=== PATIENT | female | born 1990 | race Caucasian/White ===

== ENCOUNTER 2017-06-12 01:00 | Inpatient (IN) | payer BC, OTHER ==
[~2017-06-12] VITALS: Ht 160 cm; Wt 51.4 kg
[2017-06-12 01:08] VITALS: BP 129/84
[2017-06-12] MEDS ORDERED: LACTATED RINGERS 1,000 ML IV PRN (01:34)
[2017-06-12] MEDS ORDERED: MAGNESIUM SULF. PMX 20GM/500ML 500 ML IV PRN (01:34)
[2017-06-12 01:55] LABS: BASOPHILS # (AUTO) 0.02 x10^3/uL (0-0.1); BASOPHILS % (AUTO) 0 % (0-1); EOSINOPHILS # (AUTO) 0.01 x10^3/uL (0-0.4); EOSINOPHILS % (AUTO) 0 % (1-7); LYMPHOCYTES # (AUTO) 1.33 x10^3/uL (1-3.4); LYMPHOCYTES % (AUTO) 19 % (22-44); MD NO; MEAN CORPUSCULAR HGB CONC 33.5 g/dL (32.4-35.8); MEAN CORPUSCULAR VOLUME 95.5 fL (80-100); MEAN PLATELET VOLUME 10.4 fL (7.4-10.4); MONOCYTES # (AUTO) 0.11 x10^3/uL (0.2-0.8); MONOCYTES % (AUTO) 2 % (2-9); NEUTROPHILS # (AUTO) 5.72 x10^3/uL (1.8-6.8); NEUTROPHILS % (AUTO) 80 % (42-75); PLATELET COUNT 137 x10^3/uL (130-400); RED BLOOD COUNT 3.57 x10^6/uL (3.82-5.3); RED CELL DISTRIBUTION WIDTH 13.1 % (9.6-15.2)
[2017-06-12] MEDS ORDERED: BETAMETHASONE 6 MG/ML, 5ML IM SCH ×2 (02:00→22:00)
[2017-06-12] MEDS ORDERED: PLEASE ENTER ALLERGIES MC SCH (02:00)
[2017-06-12] MEDS ORDERED: CALCIUM GLUCONATE 0.46MEQ/1ML IVPush PRN (02:00)
[2017-06-12 02:05] LABS: ALANINE AMINOTRANSFERASE 12 U/L (12-78); ALBUMIN 2.3 g/dL (3.4-5.0); ANION GAP 11 mmol/L (5-15); CALCIUM 7.9 mg/dL (8.5-10.1); CHLORIDE 108 mmol/L (98-107); CREATININE 0.46 mg/dL (0.55-1.02)
[2017-06-12 02:07] LABS: ALKALINE PHOSPHATASE 138 U/L (45-117); BILIRUBIN,TOTAL 0.4 mg/dL (0.2-1.0); TOTAL PROTEIN 6.1 g/dL (6.4-8.2)
[2017-06-12 02:51] LABS: CREATININE,URINE RANDOM 42.9 mg/dL
[2017-06-12 02:52] LABS: MICROSCOPIC INDICATED
[2017-06-12] MEDS ORDERED: PRENATAL VIT/IRON/FA 1 EACH TABLET ONE (09:21)
[2017-06-12] MEDS ORDERED: DOCUSATE 100 MG CAPSULE ONE (09:21)
[2017-06-12] MEDS: DOCUSATE 100 MG CAPSULE PO SCH (09:22)
[2017-06-12] MEDS: PRENATAL VIT/IRON/FA 1 EACH TABLET PO SCH (09:23)
[2017-06-12] MEDS: LACTATED RINGERS 1,000 ML IV SCH ×2 (14:27→22:09)
[2017-06-12 18:05] VITALS: BP 120/75
[2017-06-12] MEDS ORDERED: CALCIUM CARBONATE 500 MG TAB.CHEW PO PRN (18:56)
[2017-06-12] MEDS ORDERED: CALCIUM CARBONATE 500 MG TAB.CHEW ONE (20:33)
[2017-06-12] MEDS ORDERED: BETAMETHASONE 6 MG/ML, 5ML IM ONE (21:53)
[2017-06-12] MEDS ORDERED: ACETAMINOPHEN 325 MG TABLET PO PRN (23:00)
[2017-06-12] MEDS ORDERED: ONDANSETRON 2MG/ML, 2ML IVPush PRN (23:00)
[2017-06-13 05:33] LABS: BASOPHILS # (AUTO) 0.01 x10^3/uL (0-0.1); BASOPHILS % (AUTO) 0 % (0-1); EOSINOPHILS % (AUTO) 0 % (1-7); LYMPHOCYTES % (AUTO) 19 % (22-44); MD NO; MEAN CORPUSCULAR HGB CONC 33.1 g/dL (32.4-35.8); MEAN CORPUSCULAR VOLUME 96.7 fL (80-100); MEAN PLATELET VOLUME 11.1 fL (7.4-10.4); MONOCYTES # (AUTO) 0.14 x10^3/uL (0.2-0.8); MONOCYTES % (AUTO) 2 % (2-9); NEUTROPHILS # (AUTO) 7.31 x10^3/uL (1.8-6.8); NEUTROPHILS % (AUTO) 80 % (42-75); PLATELET COUNT 145 x10^3/uL (130-400); RED BLOOD COUNT 3.62 x10^6/uL (3.82-5.3); RED CELL DISTRIBUTION WIDTH 13.6 % (9.6-15.2)
[2017-06-13 05:42] LABS: ANION GAP 7 mmol/L (5-15); CALCIUM 7.2 mg/dL (8.5-10.1); CHLORIDE 109 mmol/L (98-107); CREATININE 0.57 mg/dL (0.55-1.02)
[2017-06-13 05:43] LABS: ALANINE AMINOTRANSFERASE 13 U/L (12-78); ALBUMIN 2.1 g/dL (3.4-5.0)
[2017-06-13 05:45] LABS: ALKALINE PHOSPHATASE 130 U/L (45-117); BILIRUBIN,TOTAL 0.4 mg/dL (0.2-1.0); TOTAL PROTEIN 5.5 g/dL (6.4-8.2)
[2017-06-13] MEDS: LACTATED RINGERS 1,000 ML IV SCH ×3 (06:26→21:34)
[2017-06-13] MEDS ORDERED: DOCUSATE 100 MG CAPSULE ONE (08:53)
[2017-06-13] MEDS ORDERED: PRENATAL VIT/IRON/FA 1 EACH TABLET ONE ×2 (08:53→08:57)
[2017-06-13] MEDS: PRENATAL VIT/IRON/FA 1 EACH TABLET PO SCH (08:57)
[2017-06-13] MEDS: DOCUSATE 100 MG CAPSULE PO SCH (08:58)
[2017-06-13 17:31] VITALS: BP 130/86
[2017-06-14] MEDS ORDERED: METOCLOPRAMIDE 5 MG/ML, 2ML ONE (00:28)
[2017-06-14] MEDS ORDERED: OXYTOCIN 30U/ 0.9% NaCL 500ML 500 ML ONE (00:28)
[2017-06-14] MEDS ORDERED: SODIUM CITRATE/CITRIC ACID 30 ML UDC ONE (00:28)
[2017-06-14] MEDS ORDERED: LACTATED RINGERS 1,000 ML IV SCH ×2 (00:31→02:05)
[2017-06-14] MEDS ORDERED: OXYTOCIN 30U/ 0.9% NaCL 500ML 500 ML IV SCH (00:31)
[2017-06-14] MEDS ORDERED: NEWBORN KIT ONE (00:51)
[2017-06-14] MEDS ORDERED: SODIUM CITRATE/CITRIC ACID 30 ML UDC PO ONE (01:00)
[2017-06-14] MEDS ORDERED: morphine SULFATE 10 MG/ML, 1ML IV PRN (01:00)
[2017-06-14] MEDS ORDERED: ONDANSETRON 2MG/ML, 2ML IVPush PRN (01:00)
[2017-06-14] MEDS ORDERED: OXYcodone 5 MG/5 ML ORAL.SOL UDC PO PRN (01:00)
[2017-06-14] MEDS ORDERED: FENTANYL PF 100 MCG/2ML IV PRN (01:00)
[2017-06-14] MEDS ORDERED: METOCLOPRAMIDE 5 MG/ML, 2ML IV ONE (01:00)
[2017-06-14] MEDS ORDERED: MEPERIDINE/PF 25MG/0.5ML IVPush PRN (01:00)
[2017-06-14] MEDS ORDERED: EPHEDRINE 50 MG/ML, 1ML IVPush PRN (01:00)
[2017-06-14] MEDS ORDERED: LACTATED RINGERS 1,000 ML IVBOLUS ONE (01:00)
[2017-06-14] MEDS ORDERED: CEFAZOLIN 1,000 MG ONE (01:01)
[2017-06-14] MEDS: LACTATED RINGERS 1,000 ML IV SCH ×3 (02:05→22:05)
[2017-06-14] MEDS ORDERED: MAGNESIUM SULF. PMX 20GM/500ML 500 ML IV PRN (02:05)
[2017-06-14] MEDS ORDERED: MAGNESIUM SULFATE PMX 4GM/100M 100 ML ONE (02:09)
[2017-06-14] MEDS ORDERED: MAGNESIUM SULF. PMX 20GM/500ML 500 ML IV ONE ×2 (02:09→10:49)
[2017-06-14] MEDS ORDERED: LACTATED RINGERS 1,000 ML IV PRN (02:12)
[2017-06-14] MEDS ORDERED: MAGNESIUM SULFATE PMX 4GM/100M 100 ML IVPB ONE ×2 (02:30)
[2017-06-14] MEDS ORDERED: ONDANSETRON 2MG/ML, 2ML IV PRN (02:30)
[2017-06-14] MEDS ORDERED: ACETAMINOPHEN 325 MG TABLET PO PRN (02:30)
[2017-06-14] MEDS ORDERED: BISACODYL 10 MG SUPP PR PRN (02:30)
[2017-06-14] MEDS ORDERED: MISOPROSTOL 200 MCG TABLET SL PRN (02:30)
[2017-06-14] MEDS: MAGNESIUM SULF. PMX 20GM/500ML 500 ML IV PRN ×2 (02:47→12:54)
[2017-06-14] MEDS: OXYTOCIN 30U/ 0.9% NaCL 500ML 500 ML IV SCH ×3 (02:48→22:05)
[2017-06-14] MEDS ORDERED: OXYcodone/APAP 5/325MG TABLET ONE ×7 (04:45→21:39)
[2017-06-14] MEDS: OXYcodone/APAP 5/325MG TABLET PO PRN ×6 (04:47→21:40)
[2017-06-14 05:04] VITALS: BP 126/77
[2017-06-14 05:53] LABS: CHLORIDE 109 mmol/L (98-107)
[2017-06-14 05:56] LABS: BASOPHILS # (AUTO) 0.03 x10^3/uL (0-0.1); BASOPHILS % (AUTO) 0 % (0-1); EOSINOPHILS % (AUTO) 0 % (1-7); LYMPHOCYTES # (AUTO) 2.05 x10^3/uL (1-3.4); LYMPHOCYTES % (AUTO) 14 % (22-44); MD NO; MEAN CORPUSCULAR HEMOGLOBIN 32.2 pg (27.0-34.8); MEAN CORPUSCULAR HGB CONC 33.5 g/dL (32.4-35.8); MEAN CORPUSCULAR VOLUME 96.1 fL (80-100); MEAN PLATELET VOLUME 11.6 fL (7.4-10.4); MONOCYTES # (AUTO) 0.44 x10^3/uL (0.2-0.8); MONOCYTES % (AUTO) 3 % (2-9); NEUTROPHILS # (AUTO) 11.86 x10^3/uL (1.8-6.8); NEUTROPHILS % (AUTO) 83 % (42-75); PLATELET COUNT 143 x10^3/uL (130-400); RED BLOOD COUNT 3.51 x10^6/uL (3.82-5.3); RED CELL DISTRIBUTION WIDTH 13.2 % (9.6-15.2)
[2017-06-14 06:04] LABS: ALANINE AMINOTRANSFERASE 18 U/L (12-78); ALBUMIN 1.9 g/dL (3.4-5.0); ALKALINE PHOSPHATASE 112 U/L (45-117); ANION GAP 9 mmol/L (5-15); BILIRUBIN,TOTAL 0.4 mg/dL (0.2-1.0); CALCIUM 7.4 mg/dL (8.5-10.1); CREATININE 0.44 mg/dL (0.55-1.02); TOTAL PROTEIN 4.8 g/dL (6.4-8.2)
[2017-06-14] MEDS ORDERED: morphine SULFATE 10 MG/ML, 1ML ONE (06:17)
[2017-06-14] MEDS: morphine SULFATE 10 MG/ML, 1ML IVPush PRN ×3 (06:21→15:58)
[2017-06-14 07:58] VITALS: BP 128/69
[2017-06-14] MEDS: PRENATAL VIT/IRON/FA 1 EACH TABLET PO SCH (09:00)
[2017-06-14] MEDS ORDERED: DOCUSATE 100 MG CAPSULE ONE (10:21)
[2017-06-14] MEDS: DOCUSATE 100 MG CAPSULE PO PRN (10:28)
[2017-06-14 12:15] VITALS: BP 128/80
[2017-06-14 13:46] VITALS: BP 125/77
[2017-06-14 15:39] VITALS: BP 123/82
[2017-06-14] MEDS ORDERED: ONDANSETRON 2MG/ML, 2ML ONE (19:20)
[2017-06-15] VITALS (7 sets, daily range): BP systolic 104–147; BP diastolic 67–94
[2017-06-15] MEDS: OXYcodone/APAP 5/325MG TABLET PO PRN ×5 (01:33→20:38)
[2017-06-15] MEDS: DOCUSATE 100 MG CAPSULE PO PRN ×3 (01:34→20:38)
[2017-06-15] MEDS: OXYTOCIN 30U/ 0.9% NaCL 500ML 500 ML IV SCH ×2 (08:05→18:05)
[2017-06-15] MEDS: LACTATED RINGERS 1,000 ML IV SCH ×2 (08:05→18:05)
[2017-06-15] MEDS: PRENATAL VIT/IRON/FA 1 EACH TABLET PO SCH (08:13)
[2017-06-15] MEDS: niFEDipine ER 30 MG TABLET.ER PO SCH (08:13)
[2017-06-16 00:30] VITALS: BP 143/82
[2017-06-16] MEDS: OXYcodone/APAP 5/325MG TABLET PO PRN ×6 (00:40→22:25)
[2017-06-16 04:30] VITALS: BP 131/74
[2017-06-16 08:02] VITALS: BP 129/73
[2017-06-16] MEDS: DOCUSATE 100 MG CAPSULE PO PRN ×2 (08:04→22:25)
[2017-06-16] MEDS: PRENATAL VIT/IRON/FA 1 EACH TABLET PO SCH (08:04)
[2017-06-16] MEDS: niFEDipine ER 30 MG TABLET.ER PO SCH (08:07)
[2017-06-16 13:00] VITALS: BP 138/76
[2017-06-16 16:16] VITALS: BP 128/74
[2017-06-16 19:45] VITALS: BP 133/91
[2017-06-17 00:20] VITALS: BP 145/87
[2017-06-17] MEDS: OXYcodone/APAP 5/325MG TABLET PO PRN ×3 (04:13→13:09)
[2017-06-17 04:15] VITALS: BP 138/88
[2017-06-17] MEDS ORDERED: OXYC-302 PO (06:02)
[2017-06-17] MEDS ORDERED: DOCU-131 PO (06:04)
[2017-06-17] MEDS ORDERED: NIFE30TA2 PO (06:05)
[2017-06-17 06:55] VITALS: BP 144/97
[2017-06-17] MEDS: niFEDipine ER 30 MG TABLET.ER PO SCH (08:56)
== END 2017-06-17 13:55 | disposition home or self-care (01) | DRG 765 ==
LOC: LDIP 01:00 → 2NW 06-15 00:21
PROVIDERS: ADMIT Obstetrics & Gynecology Maternal & Fetal Medicine; ATTEND Obstetrics & Gynecology Maternal & Fetal Medicine
PROC: 10D00Z1 Extraction of Products of Conception, Low, Open Approach (ICD-10-PCS; principal; 2017-06-14)
DX: O14.94 Unspecified pre-eclampsia, complicating childbirth (principal); Q25.5 Atresia of pulmonary artery; Q21.2 Atrioventricular septal defect; O99.42 Diseases of the circulatory system complicating childbirth; Q21.0 Ventricular septal defect; O35.9XX0 Maternal care for (suspected) fetal abnormality and damage, unspecified, not applicable or unspecified; O69.81X0 Labor and delivery complicated by cord around neck, without compression, not applicable or unspecified; O76 Abnormality in fetal heart rate and rhythm complicating labor and delivery; Z37.0 Single live birth; Q37.8 Unspecified cleft palate with bilateral cleft lip; Q66.89 Other specified congenital deformities of feet; Z3A.33 33 weeks gestation of pregnancy
CPT/HCPCS: 36415; 76805; 80053; 81001; 81050; 82570; 82803; 82962; 83615; 83735; 84156; 84550; 85025; 86850; 86900; 88307; J0690; J0702; J2405; J2270; J2590; J2765; J3475; J7120